=== PATIENT | female | born 1990 ===

== ENCOUNTER 2020-04-04 08:22 | Emergency (ER) | payer SELFPAY ==
[~2020-04-04] VITALS: Ht 152.4 cm; Wt 55.9 kg
[2020-04-04 08:30] VITALS: TEMP 97.3
[2020-04-04 09:07] LABS: COLLECTION METHOD CLEAN CATCH
[2020-04-04 09:19] LABS: MUCOUS Present /lpf; PH 6 (5-8); URINE APPEARANCE Cloudy; URINE BACTERIA Rare /hpf; URINE BILIRUBIN Negative (NEGATIVE); URINE BLOOD 2+ (NEGATIVE); URINE COLOR Yellow; URINE GLUCOSE Negative (NEGATIVE); URINE KETONE Negative (NEGATIVE); URINE LEUKOCYTE ESTERASE Trace (NEGATIVE); URINE NITRATE Negative (NEGATIVE); URINE PROTEIN(semi-quant) Negative (NEGATIVE); URINE UROBILINOGEN Negative (NEGATIVE)
[2020-04-04] MEDS ORDERED: CEPHALEXIN500 M1 PO (09:50)
[2020-04-04 10:33] VITALS: BP 112/77; PULSE 92
== END 2020-04-04 10:10 | disposition home or self-care (01) ==
LOC: COL.ER 08:22
PROVIDERS: Physician Assistant
DX: N91.2 Amenorrhea, unspecified (principal)
CPT/HCPCS: J0696